=== PATIENT | female | born 1935 | race Caucasian/White ===

== ENCOUNTER 2022-04-26 12:55 | Inpatient (IN) | payer OTHER, MEDICAID ==
[2022-04-26] MEDS ORDERED: Benzonatate 100 MG CAP PO PRN (12:59)
[2022-04-26] MEDS ORDERED: Acetaminophen 325 MG TAB PO PRN (13:02)
[2022-04-26] MEDS ORDERED: Ondansetron ODT 4 MG TAB PO PRN (13:02)
[2022-04-26] MEDS: Senokot S 8.6-50 MG TAB PO PRN (18:23)
[2022-04-26] MEDS: guaiFENesin ER 600 MG TAB PO SCH (20:08)
[2022-04-26] MEDS: Mometasone/Formoterol 200/5 60 PUFF INH SCH (20:09)
[2022-04-27] MEDS ORDERED: Non-Formulary Item 1 EACH (Tiotropium [Spiriva Handihaler] 18 MCG Box) INH SCH (07:00)
[2022-04-27] MEDS: Aspirin 81 mg Enteric Coated Tablet PO SCH (08:02)
[2022-04-27] MEDS: guaiFENesin ER 600 MG TAB PO SCH ×2 (08:02→20:09)
[2022-04-27] MEDS: Fish Oil 1,000 MG CAP PO SCH (08:02)
[2022-04-27] MEDS: Lisinopril 5 MG TAB PO SCH (08:02)
[2022-04-27] MEDS: Mometasone/Formoterol 200/5 60 PUFF INH SCH ×2 (08:03→20:09)
[2022-04-27] MEDS: Enoxaparin Sodium 40 MG/0.4 ML SYRINGE SC SCH (08:07)
[2022-04-27] MEDS: predniSONE 20 MG TAB PO SCH (08:08)
[2022-04-27] MEDS: Ferrous Sulfate 325 MG TAB PO SCH (08:08)
[2022-04-27 09:31] LABS: Hemoglobin 13.1 g/dL (12.0-16.0); Mean Corpuscular HGB CONC 32.5 g/dL (32.0-36.0); Mean Corpuscular Hemoglobin 30.9 pg (27.0-31.0); Mean Platelet Volume 7.4 fL (7.4-10.4); Platelet Count 237 10x3/uL (130-400); RBC Distribution Width 12.2 % (11.5-14.5); Red Blood Cell (RBC) Count 4.23 mill/uL (4.20-5.40); White Blood Cell (WBC) Count 24.9 10x3/uL (4.8-10.8)
[2022-04-27 09:35] LABS: MDiff Complete? YES; Manual Diff?? YES
[2022-04-27 09:37] LABS: ALT (SGPT) 39 U/L (8-55); AST (SGOT) 26 U/L (5-34); Albumin 3.3 g/dL (3.4-4.8); Alkaline Phosphatase 46 U/L (40-110); Anion Gap 12 mmol/L (10-20); BUN (Urea Nitrogen) 34 mg/dL (9.8-20.1); Bilirubin, Total 0.5 mg/dL (0.2-1.2); Calc. Creatinine Clearance 48 mL/min (70-130); Calcium 9.2 mg/dL (7.8-10.44); Carbon Dioxide 29 mmol/L (23-31); Chloride 94 mmol/L (98-107); Estimated GFR 67; Globulin 2.1 g/dL (2.4-3.5); Glucose 106 mg/dL (83-110); Potassium 4.7 mmol/L (3.5-5.1); Protein, Total 5.4 g/dL (5.8-8.1); Sodium 130 mmol/L (136-145)
[2022-04-27 09:40] LABS: Band 1 % (5-11); Dohle Bodies SLIGHT; Lymphocytes 4 % (21-51); Monocytes 7 % (0-10); Neutrophil 88 % (42-75); Platelet Morphology Comment Appears Adequate; Toxic Granulation SLIGHT; Vacuoles SLIGHT
[2022-04-28] MEDS: predniSONE 20 MG TAB PO SCH (08:45)
[2022-04-28] MEDS: Aspirin 81 mg Enteric Coated Tablet PO SCH (08:46)
[2022-04-28] MEDS: guaiFENesin ER 600 MG TAB PO SCH ×2 (08:46→20:33)
[2022-04-28] MEDS: Ferrous Sulfate 325 MG TAB PO SCH (08:46)
[2022-04-28] MEDS: Fish Oil 1,000 MG CAP PO SCH (08:46)
[2022-04-28] MEDS: Lisinopril 5 MG TAB PO SCH (08:46)
[2022-04-28] MEDS: Mometasone/Formoterol 200/5 60 PUFF INH SCH ×2 (08:47→20:36)
[2022-04-28] MEDS: Enoxaparin Sodium 40 MG/0.4 ML SYRINGE SC SCH (08:49)
[2022-04-28] MEDS: hydrOXYzine 25 MG TAB PO PRN ×2 (14:18→20:34)
[2022-04-29 06:28] LABS: #Basophils 0.2 thou/uL (0.0-0.2); #Lymphocytes 1.4 thou/uL (1.20-3.40); #Monocytes 1.1 thou/uL (0.11-0.59); %Basophils 0.8 % (0.0-1.0); %Lymphocytes 7.2 % (21.0-51.0); %Monocytes 5.5 % (0.0-10.0); %Neutrophils 86.5 % (42.0-75.0); Hemoglobin 12.2 g/dL (12.0-16.0); Mean Corpuscular HGB CONC 32.7 g/dL (32.0-36.0); Mean Corpuscular Hemoglobin 30.9 pg (27.0-31.0); Mean Corpuscular Volume 94.6 fl (78.0-98.0); Mean Platelet Volume 8.1 fL (7.4-10.4); Platelet Count 215 10x3/uL (130-400); Red Blood Cell (RBC) Count 3.96 mill/uL (4.20-5.40); White Blood Cell (WBC) Count 19.7 10x3/uL (4.8-10.8)
[2022-04-29 06:32] LABS: Anion Gap 12 mmol/L (10-20); BUN (Urea Nitrogen) 25 mg/dL (9.8-20.1); Calc. Creatinine Clearance 51 mL/min (70-130); Carbon Dioxide 30 mmol/L (23-31); Chloride 94 mmol/L (98-107); Estimated GFR 71; Glucose 89 mg/dL (83-110); Potassium 5.2 mmol/L (3.5-5.1); Sodium 131 mmol/L (136-145)
[2022-04-29] MEDS: Fish Oil 1,000 MG CAP PO SCH (08:12)
[2022-04-29] MEDS: guaiFENesin ER 600 MG TAB PO SCH ×2 (08:12→21:13)
[2022-04-29] MEDS: Aspirin 81 mg Enteric Coated Tablet PO SCH (08:12)
[2022-04-29] MEDS: Ferrous Sulfate 325 MG TAB PO SCH (08:12)
[2022-04-29] MEDS: predniSONE 20 MG TAB PO SCH (08:12)
[2022-04-29] MEDS: Mometasone/Formoterol 200/5 60 PUFF INH SCH ×2 (08:13→21:14)
[2022-04-29] MEDS: Lisinopril 5 MG TAB PO SCH (08:13)
[2022-04-29] MEDS: Enoxaparin Sodium 40 MG/0.4 ML SYRINGE SC SCH (08:13)
[2022-04-29] MEDS: hydrOXYzine 25 MG TAB PO PRN ×2 (09:38→21:13)
[2022-04-29] MEDS: Albuterol Sulfate 2.5 mg/3 ml Neb NEB PRN (18:05)
[2022-04-30] MEDS: Senokot S 8.6-50 MG TAB PO PRN (05:47)
[2022-04-30 06:06] LABS: Anion Gap 9 mmol/L (10-20); BUN (Urea Nitrogen) 24 mg/dL (9.8-20.1); Calc. Creatinine Clearance 48 mL/min (70-130); Calcium 8.8 mg/dL (7.8-10.44); Carbon Dioxide 31 mmol/L (23-31); Chloride 96 mmol/L (98-107); Estimated GFR 66; Glucose 113 mg/dL (83-110); Potassium 4.4 mmol/L (3.5-5.1)
[2022-04-30 06:22] LABS: Sodium 132 mmol/L (136-145)
[2022-04-30] MEDS: Enoxaparin Sodium 40 MG/0.4 ML SYRINGE SC SCH (08:19)
[2022-04-30] MEDS: Mometasone/Formoterol 200/5 60 PUFF INH SCH ×2 (08:19→20:25)
[2022-04-30] MEDS: guaiFENesin ER 600 MG TAB PO SCH ×2 (08:20→20:25)
[2022-04-30] MEDS: predniSONE 20 MG TAB PO SCH (08:20)
[2022-04-30] MEDS: Aspirin 81 mg Enteric Coated Tablet PO SCH (08:20)
[2022-04-30] MEDS: Ferrous Sulfate 325 MG TAB PO SCH (08:20)
[2022-04-30] MEDS: Fish Oil 1,000 MG CAP PO SCH (08:20)
[2022-04-30] MEDS: Lisinopril 5 MG TAB PO SCH (08:21)
[2022-04-30] MEDS: hydrOXYzine 25 MG TAB PO PRN ×2 (08:21→20:25)
[2022-04-30] MEDS: Albuterol Sulfate 2.5 mg/3 ml Neb NEB PRN (11:24)
[2022-04-30] MEDS: Bisacodyl 5 MG TAB PO PRN (15:51)
[2022-05-01] MEDS: Ferrous Sulfate 325 MG TAB PO SCH (09:39)
[2022-05-01] MEDS: Fish Oil 1,000 MG CAP PO SCH (09:39)
[2022-05-01] MEDS: Lisinopril 5 MG TAB PO SCH (09:39)
[2022-05-01] MEDS: predniSONE 20 MG TAB PO SCH (09:39)
[2022-05-01] MEDS: Aspirin 81 mg Enteric Coated Tablet PO SCH (09:39)
[2022-05-01] MEDS: guaiFENesin ER 600 MG TAB PO SCH ×2 (09:40→21:01)
[2022-05-01] MEDS: Enoxaparin Sodium 40 MG/0.4 ML SYRINGE SC SCH (09:40)
[2022-05-01] MEDS: Mometasone/Formoterol 200/5 60 PUFF INH SCH ×2 (09:40→21:01)
[2022-05-01] MEDS: hydrOXYzine 25 MG TAB PO PRN (09:41)
[2022-05-01] MEDS ORDERED: Bisacodyl 10 MG SUPP PR PRN (10:12)
[2022-05-02] MEDS: Enoxaparin Sodium 40 MG/0.4 ML SYRINGE SC SCH (08:25)
[2022-05-02] MEDS: Lisinopril 5 MG TAB PO SCH (08:26)
[2022-05-02] MEDS: Fish Oil 1,000 MG CAP PO SCH (08:26)
[2022-05-02] MEDS: Aspirin 81 mg Enteric Coated Tablet PO SCH (08:27)
[2022-05-02] MEDS: guaiFENesin ER 600 MG TAB PO SCH ×2 (08:27→19:51)
[2022-05-02] MEDS: Ferrous Sulfate 325 MG TAB PO SCH (08:27)
[2022-05-02] MEDS: predniSONE 20 MG TAB PO SCH (08:29)
[2022-05-02] MEDS: Mometasone/Formoterol 200/5 60 PUFF INH SCH ×2 (08:30→19:51)
[2022-05-02] MEDS: hydrOXYzine 25 MG TAB PO PRN ×2 (08:36→19:52)
[2022-05-03] MEDS ORDERED: Furosemide 20 MG TAB PO SCH (08:00)
[2022-05-03] MEDS: Enoxaparin Sodium 40 MG/0.4 ML SYRINGE SC SCH (08:12)
[2022-05-03] MEDS: Mometasone/Formoterol 200/5 60 PUFF INH SCH ×2 (08:13→21:31)
[2022-05-03] MEDS: Senokot S 8.6-50 MG TAB PO PRN (08:13)
[2022-05-03] MEDS: Aspirin 81 mg Enteric Coated Tablet PO SCH (08:15)
[2022-05-03] MEDS: Ferrous Sulfate 325 MG TAB PO SCH (08:15)
[2022-05-03] MEDS: Fish Oil 1,000 MG CAP PO SCH (08:15)
[2022-05-03] MEDS: guaiFENesin ER 600 MG TAB PO SCH ×2 (08:16→21:31)
[2022-05-03] MEDS: hydrOXYzine 25 MG TAB PO PRN (08:17)
[2022-05-03] MEDS: predniSONE 20 MG TAB PO SCH (08:21)
[2022-05-03] MEDS: Lisinopril 5 MG TAB PO SCH (10:03)
[2022-05-03] MEDS ORDERED: Ondansetron ODT 4 MG TAB SL PRN (11:00)
[2022-05-03] MEDS: Bisacodyl 5 MG TAB PO PRN (17:12)
[2022-05-04 05:57] LABS: Anion Gap 13 mmol/L (10-20); BUN (Urea Nitrogen) 26 mg/dL (9.8-20.1); Calc. Creatinine Clearance 53 mL/min (70-130); Calcium 9.1 mg/dL (7.8-10.44); Carbon Dioxide 30 mmol/L (23-31); Chloride 93 mmol/L (98-107); Estimated GFR 74; Glucose 82 mg/dL (83-110); Sodium 132 mmol/L (136-145)
[2022-05-04] MEDS: guaiFENesin ER 600 MG TAB PO SCH ×2 (07:46→20:26)
[2022-05-04] MEDS: Fish Oil 1,000 MG CAP PO SCH (07:46)
[2022-05-04] MEDS: Senokot S 8.6-50 MG TAB PO PRN (07:47)
[2022-05-04] MEDS: Ferrous Sulfate 325 MG TAB PO SCH (07:47)
[2022-05-04] MEDS: Bisacodyl 5 MG TAB PO PRN (07:47)
[2022-05-04] MEDS: predniSONE 20 MG TAB PO SCH (07:48)
[2022-05-04] MEDS: hydrOXYzine 25 MG TAB PO PRN ×2 (07:48→20:26)
[2022-05-04] MEDS: Aspirin 81 mg Enteric Coated Tablet PO SCH (07:48)
[2022-05-04] MEDS: Mometasone/Formoterol 200/5 60 PUFF INH SCH ×2 (07:50→20:25)
[2022-05-04] MEDS: Enoxaparin Sodium 40 MG/0.4 ML SYRINGE SC SCH (07:51)
[2022-05-04] MEDS: Lisinopril 5 MG TAB PO SCH (07:53)
[2022-05-04] MEDS ORDERED: Furosemide 40 MG TAB PO SCH (09:45)
[2022-05-04] MEDS ORDERED: Polyethylene Glycol 3350 17 GM Packet PO PRN (09:56)
[2022-05-04] MEDS: Hydrocortisone 1% Cream 30 GM TUBE TOP SCH (20:27)
[2022-05-05 05:43] LABS: Anion Gap 13 mmol/L (10-20); BUN (Urea Nitrogen) 21 mg/dL (9.8-20.1); Calc. Creatinine Clearance 47 mL/min (70-130); Carbon Dioxide 32 mmol/L (23-31); Chloride 90 mmol/L (98-107); Estimated GFR 69; Glucose 78 mg/dL (83-110); Potassium 4.1 mmol/L (3.5-5.1); Sodium 131 mmol/L (136-145)
[2022-05-05] MEDS: Enoxaparin Sodium 40 MG/0.4 ML SYRINGE SC SCH (08:45)
[2022-05-05] MEDS: Bisacodyl 5 MG TAB PO SCH (08:45)
[2022-05-05] MEDS: Ferrous Sulfate 325 MG TAB PO SCH (08:46)
[2022-05-05] MEDS: Fish Oil 1,000 MG CAP PO SCH (08:46)
[2022-05-05] MEDS: Aspirin 81 mg Enteric Coated Tablet PO SCH (08:46)
[2022-05-05] MEDS: guaiFENesin ER 600 MG TAB PO SCH ×2 (08:46→20:48)
[2022-05-05] MEDS: Lisinopril 5 MG TAB PO SCH (08:46)
[2022-05-05] MEDS: predniSONE 20 MG TAB PO SCH (08:47)
[2022-05-05] MEDS: hydrOXYzine 25 MG TAB PO PRN ×2 (08:48→20:48)
[2022-05-05] MEDS: Hydrocortisone 1% Cream 30 GM TUBE TOP SCH ×2 (08:49→20:58)
[2022-05-05] MEDS: Mometasone/Formoterol 200/5 60 PUFF INH SCH ×2 (08:49→20:48)
[2022-05-05] MEDS ORDERED: Furosemide 40 MG TAB PO SCH (11:45)
[2022-05-06] MEDS: Mometasone/Formoterol 200/5 60 PUFF INH SCH ×2 (08:51→20:41)
[2022-05-06] MEDS: Aspirin 81 mg Enteric Coated Tablet PO SCH (08:52)
[2022-05-06] MEDS: Ferrous Sulfate 325 MG TAB PO SCH (08:52)
[2022-05-06] MEDS: predniSONE 20 MG TAB PO SCH (08:53)
[2022-05-06] MEDS: Bisacodyl 5 MG TAB PO SCH (08:53)
[2022-05-06] MEDS: Lisinopril 5 MG TAB PO SCH (08:54)
[2022-05-06] MEDS: Fish Oil 1,000 MG CAP PO SCH (08:54)
[2022-05-06] MEDS: guaiFENesin ER 600 MG TAB PO SCH ×2 (08:54→20:42)
[2022-05-06] MEDS: Enoxaparin Sodium 40 MG/0.4 ML SYRINGE SC SCH (08:54)
[2022-05-06] MEDS: Hydrocortisone 1% Cream 30 GM TUBE TOP SCH ×2 (08:55→20:42)
[2022-05-06] MEDS: hydrOXYzine 25 MG TAB PO PRN ×2 (13:03→20:42)
[2022-05-07] MEDS: Bisacodyl 5 MG TAB PO SCH (08:30)
[2022-05-07] MEDS: Enoxaparin Sodium 40 MG/0.4 ML SYRINGE SC SCH (08:30)
[2022-05-07] MEDS: Mometasone/Formoterol 200/5 60 PUFF INH SCH ×2 (08:30→21:00)
[2022-05-07] MEDS: Fish Oil 1,000 MG CAP PO SCH (08:31)
[2022-05-07] MEDS: guaiFENesin ER 600 MG TAB PO SCH ×2 (08:31→21:02)
[2022-05-07] MEDS: Aspirin 81 mg Enteric Coated Tablet PO SCH (08:32)
[2022-05-07] MEDS: Ferrous Sulfate 325 MG TAB PO SCH (08:32)
[2022-05-07] MEDS: predniSONE 20 MG TAB PO SCH (08:32)
[2022-05-07] MEDS: hydrOXYzine 25 MG TAB PO PRN ×2 (08:33→21:01)
[2022-05-07] MEDS: Lisinopril 5 MG TAB PO SCH (08:34)
[2022-05-07] MEDS: Hydrocortisone 1% Cream 30 GM TUBE TOP SCH ×2 (08:35→21:00)
[2022-05-07] MEDS: Cephalexin 500 MG CAP PO SCH (21:14)
[2022-05-08 06:20] LABS: #Lymphocytes 1.2 thou/uL (1.20-3.40); #Monocytes 0.4 thou/uL (0.11-0.59); %Basophils 0.3 % (0.0-1.0); %Eosinophils 0.2 % (0.0-10.0); %Lymphocytes 7.7 % (21.0-51.0); %Monocytes 2.4 % (0.0-10.0); %Neutrophils 89.5 % (42.0-75.0); Mean Corpuscular HGB CONC 32.7 g/dL (32.0-36.0); Mean Corpuscular Hemoglobin 30.6 pg (27.0-31.0); Mean Corpuscular Volume 93.5 fl (78.0-98.0); Mean Platelet Volume 7.5 fL (7.4-10.4); Platelet Count 158 10x3/uL (130-400); Red Blood Cell (RBC) Count 3.28 mill/uL (4.20-5.40); White Blood Cell (WBC) Count 15.7 10x3/uL (4.8-10.8)
[2022-05-08 06:36] LABS: Anion Gap 13 mmol/L (10-20); BUN (Urea Nitrogen) 18 mg/dL (9.8-20.1); Calc. Creatinine Clearance 47 mL/min (70-130); Calcium 8.9 mg/dL (7.8-10.44); Carbon Dioxide 29 mmol/L (23-31); Chloride 94 mmol/L (98-107); Estimated GFR 69; Glucose 117 mg/dL (83-110); Potassium 3.9 mmol/L (3.5-5.1); Sodium 132 mmol/L (136-145)
[2022-05-08] MEDS: hydrOXYzine 25 MG TAB PO PRN ×2 (09:11→21:15)
[2022-05-08] MEDS: Mometasone/Formoterol 200/5 60 PUFF INH SCH ×2 (09:11→21:14)
[2022-05-08] MEDS: Lisinopril 5 MG TAB PO SCH (09:15)
[2022-05-08] MEDS: predniSONE 20 MG TAB PO SCH (09:16)
[2022-05-08] MEDS: Cephalexin 500 MG CAP PO SCH ×2 (09:16→21:13)
[2022-05-08] MEDS: Enoxaparin Sodium 40 MG/0.4 ML SYRINGE SC SCH (09:16)
[2022-05-08] MEDS: Bisacodyl 5 MG TAB PO SCH (09:16)
[2022-05-08] MEDS: Ferrous Sulfate 325 MG TAB PO SCH (09:17)
[2022-05-08] MEDS: guaiFENesin ER 600 MG TAB PO SCH ×2 (09:17→21:13)
[2022-05-08] MEDS: Fish Oil 1,000 MG CAP PO SCH (09:17)
[2022-05-08] MEDS: Hydrocortisone 1% Cream 30 GM TUBE TOP SCH ×2 (09:18→21:13)
[2022-05-08] MEDS: Aspirin 81 mg Enteric Coated Tablet PO SCH (09:18)
[2022-05-09 06:24] LABS: #Basophils 0.1 thou/uL (0.0-0.2); #Lymphocytes 0.9 thou/uL (1.20-3.40); #Monocytes 0.5 thou/uL (0.11-0.59); #Neutrophils 9.9 thou/uL (1.40-6.50); %Basophils 0.5 % (0.0-1.0); %Eosinophils 0.3 % (0.0-10.0); %Lymphocytes 7.5 % (21.0-51.0); %Monocytes 4.1 % (0.0-10.0); %Neutrophils 87.6 % (42.0-75.0); Anion Gap 11 mmol/L (10-20); BUN (Urea Nitrogen) 18 mg/dL (9.8-20.1); Calc. Creatinine Clearance 53 mL/min (70-130); Calcium 8.8 mg/dL (7.8-10.44); Carbon Dioxide 31 mmol/L (23-31); Chloride 96 mmol/L (98-107); Estimated GFR 79; Glucose 138 mg/dL (83-110); Hemoglobin 9.2 g/dL (12.0-16.0); Mean Corpuscular HGB CONC 34.2 g/dL (32.0-36.0); Mean Corpuscular Hemoglobin 31.5 pg (27.0-31.0); Mean Corpuscular Volume 92.2 fl (78.0-98.0); Mean Platelet Volume 7.5 fL (7.4-10.4); Platelet Count 158 10x3/uL (130-400); Potassium 3.8 mmol/L (3.5-5.1); RBC Distribution Width 11.8 % (11.5-14.5); Red Blood Cell (RBC) Count 2.92 mill/uL (4.20-5.40); Sodium 134 mmol/L (136-145); White Blood Cell (WBC) Count 11.3 10x3/uL (4.8-10.8)
[2022-05-09] MEDS: Mometasone/Formoterol 200/5 60 PUFF INH SCH ×2 (08:18→20:47)
[2022-05-09] MEDS: Fish Oil 1,000 MG CAP PO SCH (08:21)
[2022-05-09] MEDS: guaiFENesin ER 600 MG TAB PO SCH ×2 (08:21→20:47)
[2022-05-09] MEDS: Ferrous Sulfate 325 MG TAB PO SCH (08:21)
[2022-05-09] MEDS: predniSONE 20 MG TAB PO SCH (08:22)
[2022-05-09] MEDS: Cephalexin 500 MG CAP PO SCH ×2 (08:22→20:48)
[2022-05-09] MEDS: Lisinopril 5 MG TAB PO SCH (08:23)
[2022-05-09] MEDS: Aspirin 81 mg Enteric Coated Tablet PO SCH (08:23)
[2022-05-09] MEDS: Bisacodyl 5 MG TAB PO SCH (08:24)
[2022-05-09] MEDS: Hydrocortisone 1% Cream 30 GM TUBE TOP SCH ×2 (08:25→20:48)
[2022-05-09] MEDS: Enoxaparin Sodium 40 MG/0.4 ML SYRINGE SC SCH (08:26)
[2022-05-09] MEDS: hydrOXYzine 25 MG TAB PO PRN ×2 (08:28→16:39)
[2022-05-10] MEDS: Enoxaparin Sodium 40 MG/0.4 ML SYRINGE SC SCH (07:58)
[2022-05-10] MEDS: guaiFENesin ER 600 MG TAB PO SCH ×2 (07:59→20:16)
[2022-05-10] MEDS: Bisacodyl 5 MG TAB PO SCH (07:59)
[2022-05-10] MEDS: Mometasone/Formoterol 200/5 60 PUFF INH SCH ×2 (07:59→20:15)
[2022-05-10] MEDS: Cephalexin 500 MG CAP PO SCH ×2 (07:59→20:16)
[2022-05-10] MEDS: Aspirin 81 mg Enteric Coated Tablet PO SCH (07:59)
[2022-05-10] MEDS: Fish Oil 1,000 MG CAP PO SCH (07:59)
[2022-05-10] MEDS ORDERED: Furosemide 20 MG TAB PO SCH (08:00)
[2022-05-10] MEDS: Ferrous Sulfate 325 MG TAB PO SCH (08:02)
[2022-05-10] MEDS: Lisinopril 5 MG TAB PO SCH (08:02)
[2022-05-10] MEDS: Hydrocortisone 1% Cream 30 GM TUBE TOP SCH ×2 (08:02→20:22)
[2022-05-10] MEDS: predniSONE 20 MG TAB PO SCH (08:03)
[2022-05-10] MEDS: hydrOXYzine 25 MG TAB PO PRN ×2 (08:06→20:18)
[2022-05-11] MEDS: Ferrous Sulfate 325 MG TAB PO SCH (07:12)
[2022-05-11] MEDS: Cephalexin 500 MG CAP PO SCH ×2 (07:12→20:47)
[2022-05-11] MEDS: Fish Oil 1,000 MG CAP PO SCH (07:12)
[2022-05-11] MEDS: Lisinopril 5 MG TAB PO SCH (07:12)
[2022-05-11] MEDS: guaiFENesin ER 600 MG TAB PO SCH ×2 (07:12→20:47)
[2022-05-11] MEDS: predniSONE 20 MG TAB PO SCH (07:12)
[2022-05-11] MEDS: Aspirin 81 mg Enteric Coated Tablet PO SCH (07:12)
[2022-05-11] MEDS: Bisacodyl 5 MG TAB PO SCH (07:13)
[2022-05-11] MEDS: Enoxaparin Sodium 40 MG/0.4 ML SYRINGE SC SCH (07:13)
[2022-05-11] MEDS: Mometasone/Formoterol 200/5 60 PUFF INH SCH ×2 (07:14→20:47)
[2022-05-11] MEDS ORDERED: Furosemide 20 MG/2 ML VIAL SLOW IVP SCH (07:15)
[2022-05-11] MEDS ORDERED: Potassium Chloride 20 MEQ TAB PO SCH (07:15)
[2022-05-11] MEDS: hydrOXYzine 25 MG TAB PO PRN ×2 (07:19→20:51)
[2022-05-11] MEDS ORDERED: Furosemide 40 MG TAB PO SCH (08:45)
[2022-05-11] MEDS: Hydrocortisone 1% Cream 30 GM TUBE TOP SCH ×2 (10:07→20:49)
[2022-05-12 05:41] LABS: Anion Gap 12 mmol/L (10-20); BUN (Urea Nitrogen) 22 mg/dL (9.8-20.1); Calc. Creatinine Clearance 49 mL/min (70-130); Calcium 9.2 mg/dL (7.8-10.44); Carbon Dioxide 31 mmol/L (23-31); Chloride 93 mmol/L (98-107); Estimated GFR 72; Glucose 104 mg/dL (83-110); Potassium 4.4 mmol/L (3.5-5.1); Sodium 132 mmol/L (136-145)
[2022-05-12 06:06] VITALS: BMI 25.7
[2022-05-12] MEDS: Aspirin 81 mg Enteric Coated Tablet PO SCH (07:28)
[2022-05-12] MEDS: Bisacodyl 5 MG TAB PO SCH (07:28)
[2022-05-12] MEDS: Cephalexin 500 MG CAP PO SCH ×2 (07:28→21:18)
[2022-05-12] MEDS: hydrOXYzine 25 MG TAB PO PRN ×2 (07:28→21:14)
[2022-05-12] MEDS: Mometasone/Formoterol 200/5 60 PUFF INH SCH ×2 (07:29→21:29)
[2022-05-12] MEDS: Ferrous Sulfate 325 MG TAB PO SCH (07:29)
[2022-05-12] MEDS: predniSONE 20 MG TAB PO SCH (07:29)
[2022-05-12] MEDS: Enoxaparin Sodium 40 MG/0.4 ML SYRINGE SC SCH (07:29)
[2022-05-12] MEDS: Fish Oil 1,000 MG CAP PO SCH (07:29)
[2022-05-12] MEDS: guaiFENesin ER 600 MG TAB PO SCH ×2 (07:29→21:14)
[2022-05-12] MEDS: Lisinopril 5 MG TAB PO SCH (07:30)
[2022-05-12] MEDS: Hydrocortisone 1% Cream 30 GM TUBE TOP SCH ×2 (07:30→21:27)
[2022-05-13] MEDS: Mometasone/Formoterol 200/5 60 PUFF INH SCH ×2 (08:16→20:51)
[2022-05-13] MEDS: Ferrous Sulfate 325 MG TAB PO SCH (08:18)
[2022-05-13] MEDS: Fish Oil 1,000 MG CAP PO SCH (08:18)
[2022-05-13] MEDS: predniSONE 20 MG TAB PO SCH (08:18)
[2022-05-13] MEDS: hydrOXYzine 25 MG TAB PO PRN ×2 (08:18→20:49)
[2022-05-13] MEDS: guaiFENesin ER 600 MG TAB PO SCH ×2 (08:19→20:49)
[2022-05-13] MEDS: Bisacodyl 5 MG TAB PO SCH (08:19)
[2022-05-13] MEDS: Lisinopril 5 MG TAB PO SCH (08:19)
[2022-05-13] MEDS: Cephalexin 500 MG CAP PO SCH ×2 (08:19→20:49)
[2022-05-13] MEDS: Aspirin 81 mg Enteric Coated Tablet PO SCH (08:19)
[2022-05-13] MEDS: Enoxaparin Sodium 40 MG/0.4 ML SYRINGE SC SCH (09:21)
[2022-05-13] MEDS: Hydrocortisone 1% Cream 30 GM TUBE TOP SCH ×2 (09:24→20:51)
[2022-05-13] MEDS ORDERED: Furosemide 20 MG TAB PO SCH (13:30)
[2022-05-14 05:41] LABS: #Neutrophils 5.5 thou/uL (1.40-6.50); %Basophils 0.7 % (0.0-1.0); %Eosinophils 1.6 % (0.0-10.0); %Lymphocytes 17.4 % (21.0-51.0); %Monocytes 8.5 % (0.0-10.0); %Neutrophils 71.8 % (42.0-75.0); Hemoglobin 9.7 g/dL (12.0-16.0); Manual Diff?? NO; Mean Corpuscular HGB CONC 32.1 g/dL (32.0-36.0); Mean Corpuscular Hemoglobin 30.2 pg (27.0-31.0); Mean Platelet Volume 6.2 fL (7.4-10.4); Platelet Count 277 10x3/uL (130-400); RBC Distribution Width 12.5 % (11.5-14.5); Red Blood Cell (RBC) Count 3.22 mill/uL (4.20-5.40); White Blood Cell (WBC) Count 7.7 10x3/uL (4.8-10.8)
[2022-05-14 05:42] LABS: #Basophils 0.1 thou/uL (0.0-0.2); #Eosinphils 0.1 thou/uL (0.0-0.7); #Lymphocytes 1.3 thou/uL (1.20-3.40); #Monocytes 0.7 thou/uL (0.11-0.59)
[2022-05-14] MEDS: Mometasone/Formoterol 200/5 60 PUFF INH SCH ×2 (08:35→20:24)
[2022-05-14] MEDS: Cephalexin 500 MG CAP PO SCH ×2 (08:36→20:22)
[2022-05-14] MEDS: Enoxaparin Sodium 40 MG/0.4 ML SYRINGE SC SCH (08:36)
[2022-05-14] MEDS: hydrOXYzine 25 MG TAB PO PRN ×2 (08:36→20:22)
[2022-05-14] MEDS: Ferrous Sulfate 325 MG TAB PO SCH (08:38)
[2022-05-14] MEDS: Lisinopril 5 MG TAB PO SCH (08:38)
[2022-05-14] MEDS: Fish Oil 1,000 MG CAP PO SCH (08:39)
[2022-05-14] MEDS: Aspirin 81 mg Enteric Coated Tablet PO SCH (08:39)
[2022-05-14] MEDS: Bisacodyl 5 MG TAB PO SCH (08:39)
[2022-05-14] MEDS: guaiFENesin ER 600 MG TAB PO SCH ×2 (08:39→20:23)
[2022-05-14] MEDS: Hydrocortisone 1% Cream 30 GM TUBE TOP SCH (08:40)
[2022-05-14] MEDS ORDERED: predniSONE 10 MG TAB PO SCH (09:00)
[2022-05-14] MEDS: predniSONE 20 MG TAB PO SCH (09:31)
[2022-05-14] MEDS ORDERED: predniSONE 20 MG TAB PO SCH (10:00)
[2022-05-14] MEDS ORDERED: Hydrocortisone 1% Cream 30 GM TUBE TOP PRN (12:06)
[2022-05-15] MEDS: Fish Oil 1,000 MG CAP PO SCH (07:38)
[2022-05-15] MEDS: Cephalexin 500 MG CAP PO SCH ×2 (07:38→20:13)
[2022-05-15] MEDS: hydrOXYzine 25 MG TAB PO PRN ×2 (07:38→20:14)
[2022-05-15] MEDS: Lisinopril 5 MG TAB PO SCH (07:38)
[2022-05-15] MEDS: Aspirin 81 mg Enteric Coated Tablet PO SCH (07:38)
[2022-05-15] MEDS: guaiFENesin ER 600 MG TAB PO SCH ×2 (07:39→20:13)
[2022-05-15] MEDS: Ferrous Sulfate 325 MG TAB PO SCH (07:39)
[2022-05-15] MEDS: predniSONE 10 MG TAB PO SCH (07:39)
[2022-05-15] MEDS: Bisacodyl 5 MG TAB PO SCH (07:39)
[2022-05-15] MEDS: Mometasone/Formoterol 200/5 60 PUFF INH SCH ×2 (07:39→20:13)
[2022-05-15] MEDS: Enoxaparin Sodium 40 MG/0.4 ML SYRINGE SC SCH (07:41)
[2022-05-16] MEDS: Lisinopril 5 MG TAB PO SCH (08:26)
[2022-05-16] MEDS: Enoxaparin Sodium 40 MG/0.4 ML SYRINGE SC SCH (08:26)
[2022-05-16] MEDS: Cephalexin 500 MG CAP PO SCH (08:27)
[2022-05-16] MEDS: guaiFENesin ER 600 MG TAB PO SCH (08:27)
[2022-05-16] MEDS: Aspirin 81 mg Enteric Coated Tablet PO SCH (08:27)
[2022-05-16] MEDS: Fish Oil 1,000 MG CAP PO SCH (08:27)
[2022-05-16] MEDS: predniSONE 10 MG TAB PO SCH (08:28)
[2022-05-16] MEDS: Bisacodyl 5 MG TAB PO SCH (08:28)
[2022-05-16] MEDS: Ferrous Sulfate 325 MG TAB PO SCH (08:28)
[2022-05-16] MEDS: Mometasone/Formoterol 200/5 60 PUFF INH SCH (08:28)
[2022-05-16 08:56] VITALS: TEMP 98.3
[2022-05-16] MEDS: hydrOXYzine 25 MG TAB PO PRN ×2 (08:59→17:42)
[2022-05-16 13:00] VITALS: BP 122/73
[2022-05-17] MEDS ORDERED: Furosemide 20 MG TAB PO SCH (09:00)
== END 2022-05-16 18:15 | disposition home health service (06) | DRG 948 ==
LOC: NAV ACUTE 14:53
PROVIDERS: ADMIT Family Medicine; ATTEND Family Medicine
DX: R53.81 Other malaise (principal); J96.11 Chronic respiratory failure with hypoxia; L03.113 Cellulitis of right upper limb; E87.1 Hypo-osmolality and hyponatremia; R53.1 Weakness; Z20.822 Contact with and (suspected) exposure to COVID-19; J44.9 Chronic obstructive pulmonary disease, unspecified; I11.0 Hypertensive heart disease with heart failure; K59.00 Constipation, unspecified; K21.9 Gastro-esophageal reflux disease without esophagitis; I50.9 Heart failure, unspecified; D64.9 Anemia, unspecified; E87.5 Hyperkalemia; E78.5 Hyperlipidemia, unspecified; F41.9 Anxiety disorder, unspecified; Z90.89 Acquired absence of other organs; Z99.81 Dependence on supplemental oxygen; Z98.49 Cataract extraction status, unspecified eye; Z82.49 Family history of ischemic heart disease and other diseases of the circulatory system; Z83.6 Family history of other diseases of the respiratory system; Z87.891 Personal history of nicotine dependence; Z79.899 Other long term (current) drug therapy; Z79.82 Long term (current) use of aspirin
CPT/HCPCS: 36415; 80048; 80053; 85025; 87811; 94664; J1650; J7512; J7611; J7620; Q0162